=== PATIENT | female | born 1965 | race Caucasian/White ===

== ENCOUNTER 2018-11-24 06:13 | Day surgery (SDC) | payer BC ==
[2018-11-23 08:24] VITALS: BMI 33.3
[2018-11-24] MEDS ORDERED: MIDAZOLAM HCL 2 MG/2 ML SINGLE DOSE VIAL ONE (07:53)
[2018-11-24] MEDS ORDERED: SUCCINYLCHOLINE CHLORIDE 200 MG/10 ML SYRINGE ONE (07:53)
[2018-11-24] MEDS ORDERED: PROPOFOL 20 ML ONE ×3 (07:54)
[2018-11-24] MEDS ORDERED: DEXAMETHASONE SOD PHOSPHATE 4 MG/1 ML VIAL ONE (07:54)
[2018-11-24] MEDS ORDERED: ROCURONIUM BROMIDE 50 MG/5 ML VIAL ONE (07:54)
[2018-11-24] MEDS ORDERED: ONDANSETRON 4 MG/2 ML VIAL ONE (07:54)
[2018-11-24] MEDS ORDERED: LIDOCAINE HCL/PF 2% SDV 5ML VIAL ONE (07:54)
[2018-11-24] MEDS ORDERED: ceFAZolin SODIUM 1 GM VIAL IVPB ONE (08:33)
[2018-11-24] MEDS ORDERED: BUPIVACAINE HCL/PF 0.25% (2.5MG/ML) 10 ML VIAL IJ ONE (08:34)
[2018-11-24] MEDS ORDERED: ceFAZolin SODIUM 1 GM VIAL ONE (09:11)
[2018-11-24] MEDS ORDERED: GLYCOPYRROLATE 0.2 MG/1 ML VIAL ONE (09:12)
[2018-11-24] MEDS ORDERED: NEOSTIGMINE METHYLSULFATE 0.5 MG/1 ML - 10 ML MDV ONE (09:13)
[2018-11-24] MEDS ORDERED: BUPIVACAINE HCL/PF 0.25% (2.5MG/ML) 10 ML VIAL ONE (09:15)
[2018-11-24] MEDS ORDERED: KETOROLAC TROMETHAMINE 30 MG/1 ML VIAL ONE (09:24)
[2018-11-24] MEDS ORDERED: oxyCODONE HCL 5 MG TABLET PO PRN (09:41)
[2018-11-24] MEDS ORDERED: ONDANSETRON 4 MG/2 ML VIAL IVPUSH PRN (09:41)
[2018-11-24] MEDS ORDERED: ACETAMINOPHEN 1000 MG/100 ML VIAL (NON FORMULARY) IVPB ONE (09:42)
--- NOTE | 2018-11-24 09:44 | HP ---
History & Physical Update - History History: No Change - Physical Physical: No Change - Assessment Assessment: No Change - Plan Plan: No Change (no Changes since pre-op visit on 11/27/18)
[2018-11-24] MEDS ORDERED: LACTATED RINGERS SOLUTION 1,000 ML IV SCH (09:45)
--- NOTE | 2018-11-24 09:51 | OP ---
Operative Note - Note: Operative Date: 11/24/18 Pre-Operative Diagnosis: s/p Lap band with GERD and dysphagia Operation: lap removal of lap band Post-Operative Diagnosis: Same as Pre-op Surgeon: Yousuf Ayala Medical Writer: Carol Salinas Anesthesia: General Specimens Removed: lap band , port and scar tissue Estimated Blood Loss (mls): 5 Blood Volume Replaced (mls): 5 Operative Report Dictated: Yes
--- NOTE | 2018-11-24 09:56 | SURG ---
Surgery Plate Grainer Note Plate Grainer: Carol Salinas PA-C Date of Service: 11/24/18 Diagnosis: s/p Lap band with GERD and dysphagia Procedure: lap removal of lap band I was present for the entirety of the operative procedure. For further detail, please refer to operative report. Visit type - Case Type Case Type: Scheduled - Emergency Emergency Visit: No - New patient This patient is new to me today: Yes Date on this admission: 11/24/18
[2018-11-24] MEDS ORDERED: BUPIVACAINE HCL/PF 0.5% (5MG/ML) 10 ML VIAL ONE (10:12)
[2018-11-24 11:26] VITALS: TEMP 97.6
[2018-11-24 14:34] VITALS: BP 100/70; PULSE 54
--- NOTE | 2018-11-25 11:25 | OP ---
DATE OF OPERATION: 11/24/2018 PREOPERATIVE DIAGNOSIS: Morbid obesity, status post Lap-Band with gastroesophageal reflux and dysphagia. POSTOPERATIVE DIAGNOSIS: Morbid obesity, status post Lap-Band with gastroesophageal reflux and dysphagia. PROCEDURE: Laparoscopic removal of gastric band. SURGEON: Yousuf Patricio M.D. COMPLICATIONS: None. Patient tolerated the procedure well. This is a 53-year-old female who presents for elective removal of the gastric band. She is status post gastric banding performed approximately 6 years ago. PROCEDURE: In the operating room, she was placed in the supine position. After induction of general anesthesia, she was prepped and draped in the usual sterile fashion. The operation was begun by insufflation through a Veress needle in the left subcostal margin to a pressure of 15 mmHg. Next, a paraumbilical incision was performed with the scalpel and the port of the lap-band was then dissected using cautery and completely removed and the tubing was divided and returned back to the peritoneal cavity. Another 5 mm port was introduced under direct vision, was used as a liver retractor to expose the GE junction. was performed revealed 2 ports. Hook cautery was used to divide the capsule floor and then the band and releasing the band completely. The band was then unbuckled and removed from its position and the gastric adhesions were then divided using sharp dissection with the Endo Lorri. The capsule of the band overlying the anterior portion of the stomach was then also mobilized and dissected with the [place] dissector and then divided and resected. At this point then after taking out all the adhesions, a final check for hemostasis was performed. The band was removed out of the body and the ports were removed under direct vision. The fascia at the umbilical port was closed with 0 Vicryl sutures. The skin was closed with 4-0 Monocryl in the port sites. Dermabond was applied and the patient was then returned to the recovery room awake, alert, in stable condition. She tolerated the procedure well. YOUSUF PATRICIO M.D. [id number]
--- NOTE | 2018-11-26 18:21 | PATH ---
Surgical Pathology Report Patient Name: [facility]. Rec. #: [id number] /Age/Gender: 1965 (Age: 53) / F Account: [id number] Location: [facility] Taken: 11/24/2018 Received: 11/24/2018 Reported: 11/26/2018 Physicians: Yousuf Ayala M.D. Specimen(s) Received A: REMOVED GASTRIC BAND B: SCAR TISSUE Clinical History Morbid obesity due to excess calories Final Diagnosis A. REMOVED GASTRIC BAND: CONSISTENT WITH GASTRIC BAND. GROSS EXAMINATION ONLY B. SCAR TISSUE, EXCISION: FRAGMENTS OF DENSE FIBROTIC TISSUE AND ADJACENT UNREMARKABLE FIBROCONNECTIVE TISSUE. Electronically Signed Joseph Sorto M.D. Gross Description A. Received fresh labeled "removed gastric band," is a 4 cm in diameter white, focally disrupted device, consistent with a gastric band. The gastric band displays a 41 cm in length portion of white tubing extending from one aspect. Also received within the same container is a 2.5 cm in diameter x 1.3 cm in depth white, circular device, consistent with a port. The port displays a 13 cm in length portion of white tubing extending from one aspect. No soft tissue is present. No sections are submitted, gross only. B. Received in formalin labeled "scar tissue," is a 3.8 x 2.0 x 0.1 cm aggregate of multiple mims-garcia portions of fibrous tissue. Consumer Marketing Manager sections are submitted in one cassette. /11/25/2018 saudi11/25/2018
== END 2018-11-24 12:05 | disposition home or self-care (01) ==
LOC: JASU-SURG 06:13
PROVIDERS: ATTEND Surgery
PROC: 0DP64YZ Removal of Other Device from Stomach, Percutaneous Endoscopic Approach (ICD-10-PCS; principal; 2018-11-24 08:00)
DX: K21.9 Gastro-esophageal reflux disease without esophagitis (principal); R13.10 Dysphagia, unspecified; Z98.84 Bariatric surgery status; E66.9 Obesity, unspecified
CPT/HCPCS: 84703; 88300-TC; 88304-TC; 94760; J0131